=== PATIENT | female | born 1945 | race Caucasian/White ===

== ENCOUNTER → 2017-04-02 | Outpatient (CLI) | payer MEDICARE ==
[~2017-04-02] MED LIST: CALC600C3 PO; CALCTAB32 PO; CHRO1TAB2 PO; CINN500C2 PO; CINN500C7 PO; GLUCTAB PO; GUAI600T11 PO; HYDR12.56 PO; KLOR10TA PO; LISI10TA PO; METF500T PO; METO25 PO; METO25TA3 PO; OMEP10SU PO; POTA-243 PO; RANI150T PO; SIMV10TA PO; SIMV20TA PO
[2017-04-02 15:47] LABS: AUTOMATED NEUTROPHIL # 5.8 TH/MM3 (1.8-7.7); BASOPHIL % 0.4 % (0.0-2.0); EOSINOPHIL # 0.1 TH/MM3 (0-0.4); EOSINOPHIL % 1.3 % (0.0-4.0); HEMATOCRIT 35.5 % (35.0-46.0); HEMOGLOBIN 12.6 GM/DL (11.6-15.3); LYMPH % 22.4 % (9.0-44.0); LYMPHOCYTE # 1.9 TH/MM3 (1.0-4.8); MEAN CELL VOLUME 79.7 FL (80.0-100.0); MEAN CORPUSCULAR HEMOGLOBIN 28.2 PG (27.0-34.0); MEAN CORPUSCULAR HGB CONC 35.4 % (32.0-36.0); MEAN PLATELET VOLUME 7.5 FL (7.0-11.0); MONO % 6.4 % (0.0-8.0); MONOCYTE # 0.5 TH/MM3 (0-0.9); NEUT % 69.5 % (16.0-70.0); PLATELET COUNT 228 TH/MM3 (150-450); RED BLOOD COUNT 4.45 MIL/MM3 (4.00-5.30); RED CELL DISTRIBUTION WIDTH 14.7 % (11.6-17.2); WHITE BLOOD COUNT 8.3 TH/MM3 (4.0-11.0)
[2017-04-02 16:03] LABS: PROTHROMBIN TIME - PATIENT 10.1 SEC (9.8-11.6)
== END ==
LOC: CPRE 15:12
PROVIDERS: ATTEND Obstetrics & Gynecology Gynecologic Oncology
DX: Z01.812 Encounter for preprocedural laboratory examination (principal); C54.1 Malignant neoplasm of endometrium; N93.9 Abnormal uterine and vaginal bleeding, unspecified
CPT/HCPCS: 36415; 85025; 85610; 85730

== ENCOUNTER 2017-04-14 05:25 | Observation (INO) | payer MEDICARE ==
[~2017-04-14] VITALS: Ht 165.1 cm; Wt 88.6 kg
[2017-04-14] VITALS (8 sets, daily range): BP systolic 122–144; BP diastolic 62–72; PULSE 80–107; RESP 16–18; TEMP 98.2–99.1; O2SAT 95–96
[~2017-04-14 05:25] MED LIST changes: -CALCTAB32 PO; -CHRO1TAB2 PO; -CINN500C7 PO; -GLUCTAB PO; -HYDR12.56 PO; -METO25 PO; -POTA-243 PO; -RANI150T PO; -SIMV10TA PO
[2017-04-14] MEDS ORDERED: METRONIDAZOLE 500 MG/100 ML ISONTONIC SOLN IV PRN (05:45)
[2017-04-14] MEDS ORDERED: HEPARIN SODIUM - SQ 10,000 UNITS/ML VIAL SQ PRN (05:45)
[2017-04-14] MEDS ORDERED: LEVOFLOXACIN 500 MG PREMIX INJ 100 ML IV PRN (05:45)
[2017-04-14] MEDS ORDERED: POVIDONE IODINE 5% (ANTISEPSIS KIT) 4 APPLICATIONS EACH NARE PRN (06:00)
[2017-04-14] MEDS ORDERED: SODIUM CHLORID 0.9% 500 ML IV PRN (06:00)
[2017-04-14] MEDS ORDERED: CHLORHEXIDINE GLUCONATE 2 % 1 PACK (2 CLOTHS) TOPICAL PRN (06:00)
[2017-04-14] MEDS ORDERED: LACTATED RINGER'S 1000 ML IV PRN (06:00)
[2017-04-14] MEDS ORDERED: SODIUM CHLORIDE FLUSH PRN IV FLUSH (06:00)
[2017-04-14] MEDS ORDERED: METOPROLOL TARTRATE 25 MG TAB PO PRN (06:00)
[2017-04-14] MEDS ORDERED: ARTIFICIAL TEARS OPTH OINT 3.5 APPLIC/3.5 GM TUBO ONE (06:51)
[2017-04-14] MEDS ORDERED: ACETAMINOPHEN 1000 MG/100 ML 100 ML IV ONE (06:51)
[2017-04-14] MEDS ORDERED: SUGAMMADEX SODIUM 200 MG/2 ML VIAL IV PUSH ONE (06:51)
[2017-04-14] MEDS ORDERED: BUPIVACAINE/EPINEPHRINE 0.75% PF 30 ML VIAL ONE (07:03)
[2017-04-14] MEDS ORDERED: FAMOTIDINE 20 MG/2 ML VIAL ONE (07:04)
[2017-04-14 07:19] LABS: BLOOD UREA NITROGEN 8 MG/DL (7-18); CREATININE 0.85 MG/DL (0.50-1.00); GLOMERULAR FILTRATION RATE 66 ML/MIN (>89); GLUCOSE,RANDOM 143 MG/DL (74-106); TOTAL PROTEIN 7.2 GM/DL (6.4-8.2)
[2017-04-14 07:20] LABS: ALBUMIN 3.7 GM/DL (3.4-5.0); ALKALINE PHOSPHATASE 76 U/L (45-117); ALT (GPT) 25 U/L (10-53); AST (GOT) 16 U/L (15-37); BICARBONATE 33.4 MEQ/L (21.0-32.0); CALCIUM 8.8 MG/DL (8.5-10.1); CHLORIDE 102 MEQ/L (98-107); SODIUM (NA) 141 MEQ/L (136-145); TOTAL BILIRUBIN ADULT 0.6 MG/DL (0.2-1.0)
[2017-04-14] MEDS ORDERED: METHYLENE BLUE 10 MG/ML VIAL OTHER ONE (10:01)
[2017-04-14] MEDS ORDERED: SODIUM CHLORIDE 0.9% FLUSH 10 ML FLUSH IV FLUSH PRN (11:30)
[2017-04-14] MEDS ORDERED: ONDANSETRON HCL 4 MG/2 ML VIAL IVP PRN (11:30)
[2017-04-14] MEDS ORDERED: guaiFENesin E.R. 600 MG TAB PO PRN (11:30)
[2017-04-14] MEDS ORDERED: LORazepam 0.5 MG TAB PO PRN (11:30)
[2017-04-14] MEDS ORDERED: oxyCODONE/ACETAMINOPHEN 5 MG/325 MG TAB PO PRN ×2 (11:30)
[2017-04-14] MEDS ORDERED: diphenhydrAMINE HCL 25 MG CAP PO PRN (11:30)
[2017-04-14] MEDS ORDERED: D5-1/2 NS + KCL 20 MEQ INJ 1,000 ML ONE (11:46)
[2017-04-14] MEDS ORDERED: MIDAZOLAM HCL 2 MG/2 ML VIAL ONE (11:57)
[2017-04-14] MEDS ORDERED: MORPHINE SULFATE 4 MG/ML INJ ONE (11:57)
[2017-04-14] MEDS ORDERED: LIDOCAINE HCL 1% PF 5 ML SYRINGE OTHER ONE (12:00)
[2017-04-14] MEDS ORDERED: NEOSTIGMINE 5 MG/5 ML SYRINGE IV PUSH ONE (12:00)
[2017-04-14] MEDS ORDERED: KETOROLAC TROMETHAMINE 30 MG/ML (IVP) VIAL IV PUSH ONE (12:00)
[2017-04-14] MEDS ORDERED: PROPOFOL 200 MG/20 ML AMP IV ONE (12:00)
[2017-04-14] MEDS ORDERED: STERILE WATER FOR INJECTION 20 ML VIAL IV ONE (12:00)
[2017-04-14] MEDS ORDERED: GLYCOPYRROLATE 1 MG/5 ML SYRINGE IV PUSH ONE (12:00)
[2017-04-14] MEDS ORDERED: DEXAMETHASONE SOD PHOS 4 MG/ML VIAL IV ONE (12:00)
[2017-04-14] MEDS ORDERED: ePHEDrine/NS 25 MG/5 ML SYRINGE IV ONE (12:00)
[2017-04-14] MEDS ORDERED: ROCURONIUM INJ 50 MG/5 ML SYRINGE IV PUSH ONE (12:00)
[2017-04-14] MEDS ORDERED: VECURONIUM BROMIDE 20 MG VIAL IV ONE (12:00)
[2017-04-14] MEDS ORDERED: NORMOSOL R INJ 1,000 ML IV ONE (12:00)
[2017-04-14] MEDS: INSULIN NovoLIN REGULAR SUPPLEMENTAL SCALE SQ SCH ×4 (12:00→21:22)
[2017-04-14] MEDS ORDERED: ONDANSETRON HCL 4 MG/2 ML VIAL IV ONE (12:00)
[2017-04-14] MEDS: KETOROLAC TROMETHAMINE 30 MG/ML (IVP) VIAL IVP SCH ×2 (12:00→18:41)
[2017-04-14] MEDS: D5-1/2 NS + KCL 20 MEQ INJ 1,000 ML IV SCH (12:30)
[2017-04-14] MEDS ORDERED: *ONDANSETRON 4 MG VIAL PERIprocedural Use ONLY ONE (13:39)
[2017-04-14] MEDS ORDERED: DO NOT ADM ANY ANTICOAGULANT DRUGS PRN (13:45)
[2017-04-14] MEDS ORDERED: *PROMETHAZINE 25 MG/ML VIAL PERIprocedural use ONLY ONE (15:56)
--- NOTE | 2017-04-14 16:33 | PD.ONC.PN ---
Subjective Subjective Remarks post op check pt resting in PACU awaiting bed had an episode of vomiting, got a dose of Promethazine and none further pain controlled Objective Data Date Time Temp Pulse Resp B/P (MAP) Pulse Ox O2 Delivery O2 Flow Rate FiO2 04/14/17 15:00 85 15 134/62 (86) 95 Nasal Cannula 2 04/14/17 14:23 97.7 87 14 138/63 (88) 88 Nasal Cannula 2 04/14/17 14:00 86 16 129/62 (84) 98 Room Air 04/14/17 13:45 87 16 126/62 (83) 97 Nasal Cannula 2 04/14/17 13:30 77 16 127/58 (81) 99 Nasal Cannula 2 04/14/17 13:15 89 16 121/55 (77) 100 Nasal Cannula 2 04/14/17 13:00 80 16 132/63 (86) 100 Nasal Cannula 2 04/14/17 12:45 75 16 122/58 (79) 100 Nasal Cannula 2 04/14/17 12:30 84 16 135/58 (83) 100 Nasal Cannula 2 04/14/17 12:15 64 16 118/55 (76) 100 Nasal Cannula 2 04/14/17 12:00 62 16 118/58 (78) 98 Nasal Cannula 2 04/14/17 11:52 97.4 63 16 113/56 (75) 99 Nasal Cannula 2 04/14/17 06:14 98.4 75 20 170/73 (105) 98 04/14/17 04/14/17 04/14/17 07:00 15:00 23:00 Intake Total 1760 ml Output Total 700 ml Balance 1060 ml Result Diagram: 04/14/17 0615 Laboratory Results Laboratory Tests Test 04/14/17 06:15 Blood Urea Nitrogen 8 MG/DL Creatinine 0.85 MG/DL Random Glucose 143 MG/DL Total Protein 7.2 GM/DL Albumin 3.7 GM/DL Calcium Level 8.8 MG/DL Alkaline Phosphatase 76 U/L Aspartate Amino Transf (AST/SGOT) 16 U/L Alanine Aminotransferase (ALT/SGPT) 25 U/L Total Bilirubin 0.6 MG/DL Sodium Level 141 MEQ/L Potassium Level 3.4 MEQ/L Chloride Level 102 MEQ/L Carbon Dioxide Level 33.4 MEQ/L Anion Gap 6 MEQ/L Estimat Glomerular Filtration Rate 66 ML/MIN Administered Medications Medications (Trade) Dose Ordered Sig/Pao Route PRN Reason Start Time Stop Time Status Last Admin Dose Admin Heparin Sodium (Porcine) (Heparin Inj) 5,000 units SUPPLEMENTAL MANAGER PRN SQ GIVE SUPPLEMENTAL MANAGER TO OR 04/14/17 05:45 04/14/17 22:00 04/14/17 06:20 Metronidazole 100 ml @ 100 mls/hr SUPPLEMENTAL MANAGER PRN IV PRE-OP SUPPLEMENTAL MANAGER TO OR 04/14/17 05:45 04/14/17 22:00 04/14/17 06:25 Levofloxacin/ Dextrose 100 ml @ 100 mls/hr SUPPLEMENTAL MANAGER PRN IV GIVE SUPPLEMENTAL MANAGER TO OR 04/14/17 05:45 04/14/17 22:45 04/14/17 07:24 Lactated Ringer's 1,000 ml @ 30 mls/hr Q24H PRN IV SEE LABEL COMMENTS 04/14/17 06:00 04/17/17 05:59 04/14/17 06:15 Chlorhexidine Gluconate (Chlorhexidine 2% Cloth) 3 pack SUPPLEMENTAL MANAGER PRN TOPICAL SEE LABEL COMMENTS 04/14/17 06:00 04/17/17 05:59 04/14/17 05:30 Insulin Human Regular (NovoLIN R SUPPLEMENTAL SCALE) 1 ACHS SLIDING SCALE SQ 04/14/17 12:00 04/14/17 13:00 Potassium Chloride/Dextrose/ Sod Cl 1,000 ml @ 75 mls/hr [id number] IV 04/14/17 11:29 04/14/17 12:30 Objective Remarks GENERAL: Well-nourished, well-developed patient. SKIN: Warm and dry. HEAD: Normocephalic. EYES: No scleral icterus. No injection or drainage. NECK: Supple, trachea midline. CARDIOVASCULAR: Regular rate and rhythm without murmurs. RESPIRATORY: Breath sounds equal bilaterally. No accessory muscle use. GASTROINTESTINAL: SS are c/d/i EXTREMITIES: teds and scds MUSCULOSKELETAL: Adequate muscle tone. NEUROLOGICAL: sleeping awakes to voice PSYCHIATRIC: Appropriate mood and affect; insight and judgment normal. Assessment/Plan Problem List: (1) Post-operative state ICD Codes: Z98.890 - Other specified postprocedural states Status: Acute Plan: post op orders in chart ADAT OOB to chair pain meds per EMR nausea meds per EMR d/c rosario in morning anticipate d/c home in next 24 hours Ly Antunez [facility] Apr 14, 2017 16:33
[2017-04-14] MEDS: SODIUM CHLORIDE FLUSH BID IV FLUSH SCH (21:00)
[2017-04-14] MEDS: SODIUM CHLORIDE 0.9% FLUSH 10 ML FLUSH IV FLUSH SCH (21:21)
[2017-04-15] VITALS (13 sets, daily range): BP systolic 116–144; BP diastolic 55–79; PULSE 71–97; RESP 18; TEMP 97.4–98.9; O2SAT 93–100
[2017-04-15] MEDS: D5-1/2 NS + KCL 20 MEQ INJ 1,000 ML IV SCH (00:49)
[2017-04-15] MEDS: KETOROLAC TROMETHAMINE 30 MG/ML (IVP) VIAL IVP SCH ×2 (00:50→05:47)
[2017-04-15 06:46] LABS: AUTOMATED NEUTROPHIL # 9.7 TH/MM3 (1.8-7.7); BASOPHIL % 0.2 % (0.0-2.0); EOSINOPHIL % 0.1 % (0.0-4.0); HEMATOCRIT 33.3 % (35.0-46.0); HEMOGLOBIN 11.1 GM/DL (11.6-15.3); LYMPHOCYTE # 2.1 TH/MM3 (1.0-4.8); MEAN CORPUSCULAR HEMOGLOBIN 26.7 PG (27.0-34.0); MEAN CORPUSCULAR HGB CONC 33.4 % (32.0-36.0); MEAN PLATELET VOLUME 7.1 FL (7.0-11.0); MONO % 4.9 % (0.0-8.0); MONOCYTE # 0.6 TH/MM3 (0-0.9); NEUT % 77.8 % (16.0-70.0); PLATELET COUNT 246 TH/MM3 (150-450); RED BLOOD COUNT 4.15 MIL/MM3 (4.00-5.30); RED CELL DISTRIBUTION WIDTH 14.6 % (11.6-17.2); WHITE BLOOD COUNT 12.4 TH/MM3 (4.0-11.0)
[2017-04-15 07:11] LABS: BICARBONATE 31.5 MEQ/L (21.0-32.0); CALCIUM 7.7 MG/DL (8.5-10.1); CREATININE 1.1 MG/DL (0.50-1.00)
[2017-04-15] MEDS ORDERED: OXYC1TAB63 PO (07:15)
[2017-04-15] MEDS: INSULIN NovoLIN REGULAR SUPPLEMENTAL SCALE SQ SCH ×2 (08:00→12:51)
[2017-04-15] MEDS: SODIUM CHLORIDE FLUSH BID IV FLUSH SCH (09:00)
[2017-04-15] MEDS ORDERED: NON-FORMULARY DRUG (Lisinopril-Hctz 1 TAB) PO SCH (09:00)
[2017-04-15] MEDS ORDERED: METOPROLOL TARTRATE 25 MG TAB PO SCH (09:00)
[2017-04-15] MEDS ORDERED: LISINOPRIL 10 MG TAB PO SCH (09:00)
[2017-04-15] MEDS ORDERED: PRAVASTATIN SOD 40 MG TAB PO SCH (09:00)
[2017-04-15] MEDS ORDERED: HYDROCHLOROTHIAZIDE 25 MG TAB PO SCH (09:00)
[2017-04-15] MEDS ORDERED: PANTOPRAZOLE SOD 20 MG DELAYED RELEASE TAB PO SCH (09:00)
[2017-04-15] MEDS: SODIUM CHLORIDE 0.9% FLUSH 10 ML FLUSH IV FLUSH SCH (09:00)
--- NOTE | 2017-04-15 10:21 | MP ---
cc: STEFANIE VALADEZ M.D., KELLY L. MD WELCH, SHELLEY A. 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 2. Extensive intraperitoneal and pelvic adhesions. PROCEDURE Laparoscopy with lysis of adhesion, robotic-assisted laparoscopic hysterectomy, bilateral salpingo-oophorectomy with extensive lysis of adhesions, bilateral retroperitoneal pelvic dissection with pelvic lymph node excisional biopsies, intraperitoneal biopsies, intraperitoneal washings for cytology. SURGEON Maria Alejandra Quintana MD PRECISION FILER HAND [place] engineer first assistant ANESTHESIA General endotracheal anesthesia ESTIMATED BLOOD LOSS 100 cc IV FLUIDS 1700 cc URINE OUTPUT 500 cc HISTORY This is a 71-year-old female with postmenopausal bleeding, history of seeing a polypoid mass in the uterus extending through the cervix. Recent biopsy suggested high-grade adenocarcinoma favoring papillary serous carcinoma. Imaging shows no overt evidence of disease beyond the uterus, but the uterus is prominent with a mass-like effect in the cavity. The physical exam showed the cervix to be dilated with a polypoid mass prolapsing through the os. She was counseled regarding options. She is in favor of definitive surgery. She is seen again in the preop holding area where the findings are again reviewed, the recommendations for surgery are discussed. Questions were answered and she expressed a good understanding and would like to move forward with surgery. FINDINGS The uterine cavity sounds to 11 cm. The cervix is already dilated with polypoid tumor prolapsing through the cervical os. It is dilated and the tissue prolapses beyond the cervix approximately 1 cm. The tubes and ovaries grossly appear normal. There are no overt peritoneal implants. The liver diaphragm edges are smooth. The omentum grossly appears normal. The large and small bowel and adjacent mesentery appeared normal in that there are no peritoneal implants. There are three borderline to prominent lymph nodes in the right pelvis, one along the external iliac artery, the other two in the obturator space ventral to the obturator nerve near the bifurcation of the iliac vessels. In the left pelvis, there is a prominent lymph node right at the bifurcation of the common iliac vessels and also another one in the obturator space ventral to the obturator nerve. There are extensive adhesions. The omentum is adherent to the abdominal wall in the right upper quadrant and right lower quadrant against the lateral and ventral abdominal wall for reasons that are unclear. In the pelvis, the colon is adherent to the posterior uterus. The pericolonic mesentery and fat are adherent to the round ligament and overlying the adnexa as colon is fixed to the left pelvic sidewall, there is some obliteration of the posterior cul-de-sac. The uterus once removed showed a large polypoid tumor 6-7 cm arising from the endometrium. It was attached with a narrow stalk and there was no overt evidence of invasion. Frozen section of this polypoid mass showed what appeared to be both a malignant epithelial component, as well as a malignant stromal component favoring carcinosarcoma and with preop biopsy it is suggesting the possibility of the endometrial component being papillary serous adenocarcinoma, but with final pathology pending. STATEMENT OF COMPLEXITY/MODIFIER At least an additional hour of time is spent lysing adhesions, taking down the omentum from the left upper quadrant, left lateral quadrants and to mobilize the colon from its dense adhesions in the pelvis to free the adhesions from the cul-de-sac, to retract and dissect the colon away from the left pelvic sidewall in order to gain safe entry to the peritoneal cavity, restore normal anatomy and accomplish surgical objectives. A modifier should be applied accordingly. PROCEDURE The patient was taken to the operating room, placed in the dorsolithotomy position. After general endotracheal anesthesia was administered, time-out was undertaken. She was identified by sight recognition and hospital ID bracelet and the proposed procedure was reviewed and confirmed. She was carefully positioned in padded Inder stirrups. She was further secured to the operating table with egg crate padding tape in a cross chest over the shoulder fashion. All sites noted to be properly aligned with no malalignments or pressure points. She was prepped and draped in a sterile fashion, placed in lithotomy position, cervix was grasped. Findings were as described above. A uterine sound was able to be passed through an already dilated cervix to a depth of 11 cm. The large V-Care manipulator was inserted and secured in the usual fashion. Drake catheter placed in the bladder. She was returned to low lithotomy position, a change of sterile gloves was undertaken. We confirmed that an orogastric tube was in the stomach on suction. With manual elevation of the abdominal wall, a 5 mm cannula was introduced into the left upper quadrant. Visibility was hindered due to omental adhesions, but an area of pneumoperitoneum was obtained and this was used to guide placement of an 8 mm cannula in the right upper quadrant. Under laparoscopic visualization, blunt and sharp dissection were used to lyse adhesions, mobilizing the omentum, to free the left upper quadrant and left lateral quadrant. Sharp dissection and focal cautery were used as the omentum was mobilized. The distal part of the omentum was folded back on itself although it grossly appeared normal, it was palpably normal and the cause of the adhesions were unclear. Now a 12 mm cannula placed midline above the umbilicus. An 8 mm cannula placed in the left lateral quadrant. The original 5-mm exchanged for an 8-mm cannula and an atraumatic entry was confirmed other than superficial irritation to the omentum which was now retracted. She was placed in Trendelenburg position. Peritoneal washings were obtained for cytology. The anatomy was surveyed with findings as described above. The small bowel was folded back on its mesenteric root to the extent possible, limited in the right lower quadrant due to adhesions at the ileocecal area. Three Ray-Tatyana sponges were placed around the root of the small bowel mesentery. The robotic system brought into the operative field, attached in usual fashion, Monopolar scissors, fenestrated bipolar forceps and Prograsp manipulators placed in arms #1, 2 and 3 respectively and I took my place at the surgeon's console. The adhesions were taken down in the right lower quadrant to mobilize the ileocecal region which allowed the bowel to be mobilized from the pelvis up above the pelvic brim. The right round ligament isolated, cauterized and transected. The anterior and portion leafs of the broad ligament were opened. The right ureter was identified. The right infundibulopelvic limb was isolated. The infundibulopelvic ligament was isolated to the level of the pelvic brim where it was cauterized and transected. Posterior peritoneum opened along the right side of the uterus and cervix and the right vesicouterine peritoneum dissected off the lower uterine segment and cervix. The right uterine vessels were skeletonized and cauterized. Attention was directed toward the left side were extensive lysis of adhesion was required. The colon and pericolonic fat were taken down with sharp dissection from their adhesions to the round ligament, uterine fundus, left pelvic sidewall. Adhesions were taken down sharply to mobilize and open the posterior cul-de-sac. Retroperitoneal dissection was carried out lateral and parallel to the colon and overlying the psoas musculature and additional lysis of adhesions was carried out to mobilize the colon and move it medially to gain access to the left pelvic sidewall structures and then additional lysis of adhesion with sharp dissection was used to free attachments between the colon and the left tube and ovary. Now the left round ligament was isolated, cauterized and transected. The anterior and posterior leafs of the broad ligament were opened. The left ureter was identified. The left infundibulopelvic ligament was isolated. The intervening peritoneum was opened. The infundibulopelvic ligament was isolated to the level of the pelvic brim where it was cauterized and transected. The posterior peritoneum opened along the left side of the uterus and cervix and left vesicouterine peritoneum dissected off the lower uterine segment and cervix and the left uterine vessels were skeletonized. Now left uterine vessels were cauterized. There was blanching of the uterus, as well as the large posterior leiomyoma and so the left uterine vessels were transected. The left cardinal, paracervical, and uterosacral ligaments were isolated, cauterized and transected in a stepwise fashion thereby freeing attachments along the left side of the uterus and cervix. Attention was directed toward the right side where the right uterine vessels were transected. The cardinal, paracervical and uterosacral ligaments were isolated, cauterized and transected in a stepwise fashion thereby freeing attachments along the right side of uterus and cervix. Incision was made overlying a large (approximately 6 cm) leiomyoma that appeared to be within the wall of the uterus and did not appear to communicate with the uterine cavity, so sharp and blunt dissection were used to dissect this leiomyoma free from the posterior wall of the uterus to help facilitate transvaginal delivery of the specimen. This leiomyoma was placed in the right pericolic gutter for later retrieval. Colpotomy was performed the cervix from the upper vagina. The specimen was withdrawn transvaginally which included uterus, cervix, tubes and ovaries and a Pneumooccluder balloon was placed in the vagina to maintain pneumoperitoneum. Instruments one and three exchanged for needle drivers as a 0 Vicryl suture was introduced. The vaginal cuff was closed starting at the left corner full-thickness closure incorporating the edge of the uterosacral ligament, posterior peritoneum tied via instrument tie and then running continuous full-thickness closure was carried across the vaginal apex to the contralateral corner where it was similarly secured, tied, the needle was cut and removed. The integrity of the bladder was confirmed by filling the bladder with saline dye with methylene blue. There were no areas of thinning of the bladder. No extravasation of dye. There was a good margin between the bladder edge and the vaginal cuff suture line and good peristalsis of ureters and bladder was drained. The right and left retroperitoneal dissection was carried out by opening the pericolic, pararectal, an obturator spaces to try to maximize yield looking for the possibility of metastatic disease, but to minimize the chance of morbidity as agreed upon preoperatively any abnormal lymph nodes would be removed to try to avoid full dissection looking for microscopic disease especially given the diagnosis of carcinosarcoma, as well as uterine papillary serous carcinoma both of which may have recommendation for systemic treatment. Irrespective of surgical pathology. Nevertheless, there was a large approximately 2 cm lymph node along the external iliac artery near the circumflex iliac vein. This was isolated with bipolar cautery. Sharp dissection, removed and placed on a Ray-Tatyana in the right pericolic gutter for later retrieval. Dissection was continued. Two borderline enlarged lymph nodes were identified in the obturator space ventral to the obturator nerve. These were isolated, small bleeders rendered hemostatic with bipolar cautery and with sharp dissection and bipolar cautery each of these were removed and placed on the Ray-Tatyana in the right pericolic gutter. Visual and manual inspection revealed no remaining enlarged or prominent lymph nodes on inspection and palpation. Visualization and palpation of the para-aortic and pericaval region revealed no obviously enlarged lymph nodes. No obvious abnormality. Attention was directed toward the left pelvis where similarly the left paravesical, pararectal and obturator spaces were developed. There was a prominent, approximately 1 cm, lymph node right at the bifurcation of the iliac arteries just beyond the common iliac artery bifurcation. This was isolated. Bipolar cautery and sharp dissection were used to free it from the ventral wall of the obturator vein and medial wall of the obturator artery. It was placed in the left pericolic gutter. Dissection in the obturator space revealed essentially normal anatomy with one exception of borderline enlarged lymph node in the obturator space ventral to the obturator nerve. This was removed with bipolar cautery and sharp dissection, placed in the left pericolic gutter. Visual and palpable inspection revealed no remaining abnormalities in the left pelvic and retroperitoneal space. Multifocal peritoneal biopsies were then obtained with sharp dissection or cautery from the pelvis and the abdomen and these were collected, placed in the right pericolic gutter, and the omentum was inspected and grossly appeared normal. It was still adherent in the left upper quadrant and logistically difficult to reach laparoscopically robotically, but grossly visibly and palpably normal and again given the likely diagnosis of carcinosarcoma was felt that further dissection may be associated with morbidity that exceeded beneficial yield and it was felt therefore that all reasonable surgical objectives had been completed. The peritoneal biopsies were removed using laparoscopic grasping forceps. These were removed laparoscopically. The pelvis was thoroughly irrigated. Small bleeders rendered hemostatic with bipolar cautery and hemostatic Surgicel powder was placed across the areas where the adhesions were taken down from the colon from the retroperitoneal dissection and across the vaginal cuff. The robotic instruments were removed. The robotic system was disengaged from the operative field. I reentered the bedside under sterile condition. EndoCatch bags were used to capture first the right pelvic lymph nodes which were brought out through the 12-mm cannula and then another EndoCatch bag used to capture the left pelvic lymph nodes which were brought out through the 12-mm cannula. It should be noted also that an EndoCatch bag was used transvaginally after delivery of the uterus. The resected leiomyoma was placed in an EndoCatch bag and which was withdrawn transvaginally and it should also be noted that frozen section analysis of that confirmed that it was a benign-appearing leiomyoma and there was no loss of integrity to the endometrial cavity. Next, three Ray-Tatyana sponges that were in the peritoneal cavity were isolated and removed. Each were removed, inspected and noted to be removed in their entirety. Visual inspection confirmed there were no remaining foreign objects in the peritoneal cavity. Preliminary counts were correct and attention was directed toward closing. The 12 mm defect was closed with 0 Vicryl sutures using a needle pass fascia closure apparatus. They were tied securely which rendered the fascia completely airtight and hemostatic. The remaining cannulas were withdrawn. Carbon dioxide gas was removed from the peritoneum, 3-0 Vicryl subcutaneous, 3-0 Vicryl subcuticular and Steri-Strips were used to close these incisions. She was returned to dorsolithotomy position. Pelvic exam confirmed there were no remaining foreign objects in the vagina. Final counts were correct. The vaginal cuff was well supported and hemostatic. There were no vaginal lacerations. She was returned to dorsal supine position and was pending reversal of anesthesia when I left the operating room to precede her to the Post Anesthesia Care Unit. MD JOSE ALFREDO Preciado/LUIS MANUEL /12:33 PM /9:41 AM
[2017-04-15] MEDS ORDERED: SODIUM CHLOR 0.9% 1000 ML INJ 1,000 ML IV SCH (15:00)
--- NOTE | 2017-04-17 09:31 | MD ---
cc: STEFANIE VALADEZ M.D., KELLY L. MD WELCH, SHELLEY A. ADMISSION DATE: 04/14/2017 DISCHARGE DATE: 04/15/2017 PROCEDURE 04/14/2017 - Robotic-assisted laparoscopic hysterectomy, bilateral salpingo-oophorectomy, extensive lysis of adhesions, bilateral pelvic lymph node biopsies, intraperitoneal biopsies. DIAGNOSIS High-grade endometrial cancer. HOSPITAL COURSE She did well in the hospital course, hemodynamically stable, tolerated oral intake. Drake catheter removed pending voiding. INS AND OUTS [id number]. LABS H&H 11.1 and 33.3. Electrolytes - potassium 3.5, BUN and creatinine 9 and 1.10 (slight increase from baseline creatinine is 0.85). PHYSICAL EXAMINATION VITAL SIGNS: Afebrile, pulse 81-90, blood pressure 116-122/55-62, O2 saturations greater than or equal to 95% while asleep, 97% while awake. GENERAL: Alert and oriented x3. LUNGS: Clear. Mild rales at the bases. CARDIOVASCULAR: Regular rate and rhythm. ABDOMEN: Soft. Incision is clean and dry. CHIROPRACTIC NEUROLOGIST: No bleeding. ASSESSMENT Postop day #1. FINDINGS Preliminary pathology, steps taken discussed and reviewed. Activities and restrictions reviewed. She is encouraged to increase her oral intake, slight shift in her creatinine likely due to the preoperative bowel prep, fluid shifts from surgery which we expect will normalize. Recommend repeating her labs within 1-2 weeks. She is to resume her prior medication and have a prescription for Percocet for pain if she needs it. PLAN Therefore anticipate discharge to home. She is to contact our office to ensure she has a follow-up appointment in 2 weeks or to call if at anytime sooner should she have any questions or problems. Plan to consider repeating her electrolytes, repeating her basic metabolic panel and CBC within 1-2 weeks. MD JOSE ALFREDO Preciado/JESÚS /7:17 AM /9:15 AM
== END 2017-04-15 19:04 | disposition home or self-care (01) ==
LOC: HSDC 05:25 → HSDI 11:32 → HCIN 17:12
PROVIDERS: ADMIT Obstetrics & Gynecology Gynecologic Oncology; ATTEND Obstetrics & Gynecology Gynecologic Oncology
DX: C54.1 Malignant neoplasm of endometrium (principal); N73.6 Female pelvic peritoneal adhesions (postinfective); I10 Essential (primary) hypertension; K21.9 Gastro-esophageal reflux disease without esophagitis; N93.9 Abnormal uterine and vaginal bleeding, unspecified; E11.9 Type 2 diabetes mellitus without complications; Z79.84 Long term (current) use of oral hypoglycemic drugs
CPT/HCPCS: 00860; 38571; 58552; 80048; 80053; 82948; 85025; 86850; 86900; 86901; 88112; 88305; 88307; 88309; 88331; 88332; 94150; 96361; 96365; 96366; 96375; G0378; J0131; J1100; J1644; J1885; J1956; J2250; J2270; J2405; J2550; J2710; J3010; J3480; J7030; J7120